=== PATIENT | female | born 1950 | race Caucasian/White ===

== ENCOUNTER 2019-02-20 14:04 | Emergency (ER) | payer MEDICARE, OTHER ==
[2019-02-20] MEDS ORDERED: Ketorolac 60 MG/2 ML SDV IM ONE (14:21)
--- NOTE | 2019-02-20 14:27 | EDM.PDOC ---
ED HPI GENERAL MEDICAL PROBLEM - General Chief Complaint: Lower Extremity Injury/Pain Stated Complaint: KNEE INJURY Time Seen by Provider: 02/20/19 14:04 Source of Information: Reports: Patient History Limitations: Reports: No Limitations - History of Present Illness INITIAL COMMENTS - FREE TEXT/NARRATIVE: HISTORY AND PHYSICAL: History of present illness: Patient is a 68-year-old female presents to the ED today with concern of right knee injury that occurred just prior to arrival to the ED. Patient states she was cleaning her bedroom and she was up on a stool and she had missed the last step and twisted her knee. She denies head injury or loss of consciousness. Afterwards, patient states she felt dizzy and lightheaded. She denies any health history. Upon arrival, patient states her only complaint is her knee pain. She states that she has not been able to walk on it since this happened. She states her knee feels better in the bent position. She denies any prior injury to the knee. Patient denies fever, chills, chest pain, shortness of breath, or cough. Denies headache, neck stiff ness, change in vision, syncope, or near syncope. Denies nausea, vomiting, abdominal pain, diarrhea, constipation, or dysuria. Has not noted any blood in urine or stool. Patient has been eating and drinking appropriately. Review of systems: As per history of present illness and below otherwise all systems reviewed and negative. Past medical history: As per history of present illness and as reviewed below otherwise noncontributory. Surgical history: As per history of present illness and as reviewed below otherwise noncontributory. Social history: See social history for further information Family history: As per history of present illness and as reviewed below otherwise noncontributory. Physical exam: General: Patient is alert, oriented, and in no acute distress. Patient sitting comfortably on exam table. HEENT: Atraumatic, normocephalic, pupils equal and reactive bilaterally, negative for conjunctival pallor or scleral icterus, mucous membranes moist, TMs normal bilaterally, throat clear, neck supple, nontender, trachea midline. No drooling or trismus noted. No meningeal signs. No hot potato voice noted. Lungs: Clear to auscultation, breath sounds equal bilaterally, chest nontender. Heart: S1S2, regular rate and rhythm without overt murmur Abdomen: Soft, nondistended, nontender. Negative for masses or hepatosplenomegaly. Negative for costovertebral tenderness. Pelvis: Stable nontender. Genitourinary: Deferred. Rectal: Deferred. Skin: Intact, warm, dry. No lesions or rashes noted. Extremities: Negative for cords or calf pain. Neurovascular unremarkable. Dorsalis pedis and posterior tibial pulses are grossly intact of the right extremity. Unable to assess range of motion of the right knee due to pain. Some mild edema of the generalized knee. Not warm to palpation. No erythema noted of the knee. Patient has full range of motion of the right ankle and digits of the foot. Neuro: Awake, alert, oriented. Cranial nerves II through XII unremarkable. Cerebellum unremarkable. Motor and sensory unremarkable throughout. Exam nonfocal. Notes: Dr. Kumar verbally involved in patient care[facility]. Patient was not tolerating any splinting or knee immobilizer. Was able to get a post mold long-leg splint, however, patient's knee is in flexion per patient request. Dorsalis pedis and posterior tibial pulses remain intact after splinting. Voices understanding and is agreeable to plan of care. Denies any further questions or concerns at this time. Diagnostics: Knee x-ray, CBC, CMP, UA, EKG, troponin Therapeutics: toradol, (patient declines morphine/narcotic pain medication), long leg post mold splint Impression: Mildly displaced comminuted intra-articular tibial plateau fracture Plan: 1. Transfer to [facility] to Dr. Farley. Definitive disposition and diagnosis as appropriate pending reevaluation and review of above. Right Knee Pain Score (Numeric/FACES): 4 - Related Data Allergies Allergy/AdvReac Type Severity Reaction Status Date / Time acetaminophen Allergy Nausea Verified 02/20/19 14:16 [From Darvocet-N] propoxyphene Allergy Nausea Verified 02/20/19 14:16 [From Darvocet-N] Home Meds: Home Meds Calcium Citrate/Vitamin D3 [Citracal + D Maximum [place]] 2 tab PO BID 08/02/14 [ History] Cyanocobalamin (Vitamin B-12) [Vitamin B-12] 250 mcg PO DAILY 08/02/14 [History] Fish Oil/[place]-3 Fatty Acids [Fish Oil 1,000 MG] 1 cap PO BID 08/02/14 [History] Vit A/Vit C/Vit E/Zinc/Copper [Preservision] 1 tab PO BID 05/06/18 [History] Past Medical History Cardiovascular History: Reports: High Cholesterol Gastrointestinal History: Reports: Helicobacter Pylori - Infectious Disease History Infectious Disease History: Reports: Chicken Pox, Measles, Mumps - Past Surgical History Female Surgical History: Reports: Hysterectomy Social & Family History - Family History Family Medical History: Noncontributory Cardiac: Reports: CAD - Tobacco Use Smoking Status *Q: Never Smoker - Caffeine Use Caffeine Use: Reports: Coffee, Tea - Recreational Drug Use Recreational Drug Use: No Review of Systems - Review of Systems Review Of Systems: ROS reveals no pertinent complaints other than HPI. ED EXAM, GENERAL - Physical Exam Exam: See Below (see dictation) Course - Vital Signs Last Recorded V/S: Last Vital Signs Temp 36.2 C 02/20/19 14:10 Pulse 79 02/20/19 14:10 Resp 18 02/20/19 14:10 BP 114/47 L 02/20/19 14:10 Pulse Ox 98 02/20/19 14:10 - Orders/Labs/Meds Orders: Active Orders 24 hr Category Date Time Status EKG Documentation Completion [RC] STAT Care 02/20/19 14:21 Active DME for Discharge [COMM] Stat Oth 02/20/19 15:44 Ordered Labs: Laboratory Tests 02/20/19 02/20/19 02/20/19 Range/Units 14:33 14:33 14:33 WBC 13.89 H (4.0-11.0) K/uL RBC 4.15 L (4.30-5.90) M/uL Hgb 12.7 (12.0-16.0) g/dL Hct 38.4 (36.0-46.0) % MCV 92.5 (80.0-98.0) fL MCH 30.6 (27.0-32.0) pg MCHC 33.1 (31.0-37.0) g/dL RDW Std Deviation 42.5 (28.0-62.0) fl RDW Coeff of [place] 13 (11.0-15.0) % Plt Count 338 (150-400) K/uL MPV 9.20 (7.40-12.00) fL Neut % (Auto) 84.5 H (48.0-80.0) % Lymph % (Auto) 9.4 L (16.0-40.0) % [place] % (Auto) 4.8 (0.0-15.0) % Eos % (Auto) 1.2 (0.0-7.0) % Baso % (Auto) 0.1 (0.0-1.5) % Neut # (Auto) 11.7 H (1.4-5.7) K/uL Lymph # (Auto) 1.3 (0.6-2.4) K/uL [place] # (Auto) 0.7 (0.0-0.8) K/uL Eos # (Auto) 0.2 (0.0-0.7) K/uL Baso # (Auto) 0.0 (0.0-0.1) K/uL Nucleated RBC % 0.0 /100WBC Nucleated RBCs # 0 K/uL Sodium 138 (136-145) mmol/L Potassium 4.0 (3.5-5.1) mmol/L Chloride 103 (98-107) mmol/L Carbon Dioxide 26.2 (21.0-32.0) mmol/L BUN 23 H (7.0-18.0) mg/dL Creatinine 1.0 (0.6-1.0) mg/dL Est Cr Clr Drug Dosing 45.17 mL/min Estimated GFR (MDRD) 55.5 ml/min Glucose 133 H (74-106) mg/dL Calcium 9.1 (8.5-10.1) mg/dL Total Bilirubin 0.3 (0.2-1.0) mg/dL AST 20 (15-37) IU/L ALT 25 (14-63) IU/L Alkaline Phosphatase 90 (46-116) U/L Troponin I < 0.050 (0.000-0.056) ng/mL Total Protein 7.2 (6.4-8.2) g/dL Albumin 3.5 (3.4-5.0) g/dL Globulin 3.7 (2.6-4.0) g/dL Albumin/Globulin Ratio 0.9 (0.9-1.6) Urine Color YELLOW Urine Appearance SLT CLOUDY Urine pH 6.0 (5.0-8.0) Ur Specific [place] 1.020 (1.001-1.035) Urine Protein TRACE H (NEGATIVE) mg/dL Urine Glucose (UA) NEGATIVE (NEGATIVE) mg/dL Urine Ketones NEGATIVE (NEGATIVE) mg/dL Urine Occult Blood TRACE-INTACT H (NEGATIVE) Urine Nitrite NEGATIVE (NEGATIVE) Urine Bilirubin NEGATIVE (NEGATIVE) Urine Urobilinogen 0.2 (<2.0) EU/dL Ur Leukocyte Esterase NEGATIVE (NEGATIVE) Urine RBC 1-2 (0-2/HPF) Urine WBC 2-3 (0-5/HPF) Ur Epithelial Cells MODERATE (NONE-FEW) Urine Bacteria RARE (NEGATIVE) Meds: Medications Discontinued Medications Generic Name Dose Route Start Last Admin Trade Name Freq PRN Reason Stop Dose Admin Ketorolac Tromethamine 60 mg 02/20/19 14:21 02/20/19 14:40 Toradol IM 02/20/19 14:22 60 mg ONETIME ONE Administration Morphine Sulfate 2 mg 02/20/19 15:33 Morphine IVPUSH 02/20/19 15:34 ONETIME ONE Departure - Departure Time of Disposition: 15:45 Disposition: DC/[facility]fer to [facility] 02 Clinical Impression: Tibial plateau fracture Qualifiers: Encounter type: initial encounter Fracture type: closed Laterality: right Qualified Code(s): S82.141A - Displaced bicondylar fracture of right tibia, initial encounter for closed fracture - Discharge Information Referrals: PCP,Unknown [Primary Care Provider] - - My Orders Last 24 Hours: My Active Orders 02/20/19 14:21 EKG Documentation Completion [RC] STAT 02/20/19 15:44 DME for Discharge [COMM] Stat - Assessment/Plan Last 24 Hours: My Active Orders 02/20/19 14:21 EKG Documentation Completion [RC] STAT 02/20/19 15:44 DME for Discharge [COMM] Stat
--- NOTE | 2019-02-20 15:23 | CR ---
EXAMINATION: Portable chest radiograph. HISTORY: Fall. Comparison: 05/06/2018 FINDINGS: The trachea is midline. The cardiomediastinal silhouette is within normal limits. No pulmonary infiltrates, effusions or pneumothorax. Mild hyperinflation. Osseous structures appear unremarkable. IMPRESSION: No acute cardiopulmonary process.
--- NOTE | 2019-02-20 15:28 | CR ---
EXAMINATION: Right knee and right tibia and fibula HISTORY: Pain COMPARISON: None TECHNIQUE: 3 views of the right knee and 2 views of the right tibia and fibula FINDINGS: There is a comminuted mildly displaced intra-articular proximal right tibia fracture. There is extension into the articular surface along the lateral malleolus. There is a small joint effusion. The remaining osseous structures appear preserved. Osseous structures otherwise appear osteopenic. Ankle mortise and talar dome appear preserved. IMPRESSION: Mildly displaced comminuted intra-articular tibial plateau fracture.
[2019-02-20 15:31] LABS: CHLORIDE,CL 103 mmol/L (98-107); SODIUM,NA 138 mmol/L (136-145)
[2019-02-20] MEDS ORDERED: Morphine 2 MG/ML Syringe IVPUSH ONE (15:33)
[2019-02-20 17:05] VITALS: BP 116/57
== END 2019-02-20 17:08 ==
LOC: MW.ED 14:04
DX: S82.141A Displaced bicondylar fracture of right tibia, initial encounter for closed fracture (principal); E78.00 Pure hypercholesterolemia, unspecified; W08.XXXA Fall from other furniture, initial encounter; Z88.6 Allergy status to analgesic agent; Z79.899 Other long term (current) drug therapy; Z88.8 Allergy status to other drugs, medicaments and biological substances
CPT/HCPCS: 29505; 36415; 71045; 73562; 73590; 80053; 81001; 84484; 85025; 93005; 96372; 99285; J1885

== ENCOUNTER 2024-06-09 07:29 | Day surgery (SDC) | payer MEDICARE, OTHER ==
[~2024-06-09 07:29] MED LIST: Sodium Chloride 0.9% 10 ML Syringe FLUSH PRN; Sodium Chloride 0.9% 2.5 ML Syringe FLUSH PRN; Sodium Chloride 0.9% 20 ML SDV IV PRN
[2024-06-09] MEDS: Lactated Ringers 1,000 ML IV SCH (08:14)
[2024-06-09] MEDS ORDERED: Lidocaine 2% 5 ML SDV ONE (09:23)
[2024-06-09] MEDS ORDERED: Propofol 200 MG/20 ML SDV ONE (09:24)
[2024-06-09 10:55] VITALS: BP 119/66; PULSE 83
== END 2024-06-09 10:42 | disposition home or self-care (01) ==
LOC: MW.SDS 07:29
PROVIDERS: ATTEND Surgery
DX: Z12.11 Encounter for screening for malignant neoplasm of colon (principal); D12.3 Benign neoplasm of transverse colon; D12.5 Benign neoplasm of sigmoid colon; E78.00 Pure hypercholesterolemia, unspecified
CPT/HCPCS: 45380; 88305; J2704; J7120; 00811; 99100; J3490